=== PATIENT | male | born 1940 | race Caucasian/White ===

== ENCOUNTER 2017-11-17 15:31 | Emergency (ER) | payer MEDICARE, BC ==
[2015-01-13 07:38] VITALS: BMI 29.2
[~2017-11-17 15:31] MED LIST: BAYER CHEWABLE81 MG PO; CORDARONE200 MG PO; COUMADIN2.5 MG PO; GLIMEPIRIDE1 MG PO; IMDUR30 MG PO; JANUMET 50-1,001 TAB PO; LASIX80 MG PO; NITROSTAT0.4 MG SL; PLAVIX75 MG PO; ZAROXOLYN5 MG PO
== END 2017-11-17 17:55 | disposition home or self-care (01) ==
LOC: D.ER 15:31
DX: S01.80XA Unspecified open wound of other part of head, initial encounter (principal); W01.0XXA Fall on same level from slipping, tripping and stumbling without subsequent striking against object, initial encounter; Y93.89 Activity, other specified; Y92.019 Unspecified place in single-family (private) house as the place of occurrence of the external cause; S09.90XA Unspecified injury of head, initial encounter; I10 Essential (primary) hypertension